=== PATIENT | male | born 2000 ===

== ENCOUNTER 2022-12-11 11:48 | Emergency (ER) | payer BC, MEDICAID, OTHER ==
[2022-12-11] MEDS ORDERED: Ketorolac 30 MG/ML SDV IM ONE (13:38)
[2022-12-11] MEDS ORDERED: Ondansetron 4 MG/2 ML SDV IVPUSH ONE (15:22)
[2022-12-11] MEDS ORDERED: Propofol 200 MG/20 ML SDV IVPUSH ONE (15:22)
[2022-12-11] MEDS ORDERED: Sodium Chloride 0.9% 1,000 ML IV ONE (15:22)
[2022-12-11] MEDS ORDERED: Propofol 200 MG/20 ML SDV ONE (15:38)
[2022-12-11 18:09] VITALS: BP 145/78; PULSE 68
== END 2022-12-11 18:09 | disposition home or self-care (01) ==
LOC: MW.ED 11:48
DX: S73.005A Unspecified dislocation of left hip, initial encounter (principal); X58.XXXA Exposure to other specified factors, initial encounter; Y93.61 Activity, american tackle football
CPT/HCPCS: 27250; 72170; 73700; 96361; 96372; 96374; 99152; 99284; J1885; J2405; J2704; J7030

== ENCOUNTER 2023-10-19 00:13 | Emergency (ER) | payer OTHER ==
[2023-10-19 00:23] VITALS: BP 140/99
[2023-10-19 00:35] VITALS: PULSE 100
== END 2023-10-19 00:39 | disposition home or self-care (01) ==
LOC: MW.ED 00:13
DX: F10.129 Alcohol abuse with intoxication, unspecified (principal)
CPT/HCPCS: 99283

== ENCOUNTER 2023-12-30 04:20 | Emergency (ER) | payer OTHER ==
[2023-12-30 04:28] VITALS: BP 154/64; PULSE 98
== END 2023-12-30 04:36 ==
LOC: MW.ED 04:20
DX: Z02.89 Encounter for other administrative examinations (principal); F10.129 Alcohol abuse with intoxication, unspecified; R45.1 Restlessness and agitation; Z75.8 Other problems related to medical facilities and other health care
CPT/HCPCS: 99284